=== PATIENT | male | born 1960 | race Caucasian/White ===

== ENCOUNTER 2018-12-06 15:13 | Emergency (ER) | payer OTHER ==
[2018-12-06 15:46] VITALS: BP 180/127; PULSE 80; O2SAT 99
[2018-12-06] MEDS ORDERED: VASOTEC I.V. 2.5 MG IV ONE (15:51)
--- NOTE | 2018-12-06 16:06 | ERPHSYRPT ---
- History of Present Illness Time Seen by Provider: 12/06/18 15:45 Source: patient Exam Limitations: no limitations Patient Subjective Stated Complaint: elevatged b/p today. had been trying to manage with Dr Montgomery Triage Nursing Assessment: alert and in no distress. states b/p elevated. spoke with Dr Lott yesterday and was told to increase his amolpidine. states no decrease. was instructed to increase to 10mg with no change. called office and since MD was not in office they told him to come to ER. denies CP,n/ v or headache. Physician History: 58 y/o white male with h/o high blood pressure presents with elevated bp. pt seen by pcp on tuesday [facility]. pt was taking lisinopril 20mg orally each am prior to his visit to the pcp. they added amlodipine 5mg orally each morning. yesterday pt call pcp office because bp still >180/100. told pt to take 10mg amlodipine each morning. this am bp continues to be >180/100. pts pcp not in office today. pt has no sx whatsoever but concerned bp elevated. Timing/Duration: day(s) (2) Severity: mild Associated Symptoms: denies symptoms Hx Influenza Vaccination/Date Given: No Immunizations Up to Date: Yes - Review of Systems Constitutional: No Symptoms Eyes: No Symptoms Ears, Nose, & Throat: No Symptoms Respiratory: No Symptoms Cardiac: No Symptoms Abdominal/Gastrointestinal: No Symptoms Genitourinary Symptoms: No Symptoms Musculoskeletal: No Symptoms Skin: No Symptoms Neurological: No Symptoms Psychological: No Symptoms Endocrine: No Symptoms Hematologic/Lymphatic: No Symptoms Immunological/Allergic: No Symptoms All Other Systems: Reviewed and Negative - Past Medical History Pertinent Past Medical History: Yes Neurological History: No Pertinent History ENT History: No Pertinent History Cardiac History: Hypertension Respiratory History: No Pertinent History Endocrine Medical History: No Pertinent History Musculoskeletal History: No Pertinent History GI Medical History: No Pertinent History History: No Pertinent History Psycho-Social History: No Pertinent History Male Reproductive Disorders: No Pertinent History - Past Surgical History Past Surgical History: No Neuro Surgical History: No Pertinent History Cardiac: No Pertinent History Respiratory: No Pertinent History Gastrointestinal: No Pertinent History Genitourinary: No Pertinent History Musculoskeletal: No Pertinent History Male Surgical History: No Pertinent History - Social History Smoking Status: Current every day smoker Exposure to second hand smoke: No Drug Use: none Patient Lives Alone: No - Nursing Vital Signs Nursing Vital Signs: Initial Vital Signs Temperature 97.8 F 12/06/18 15:39 Pulse Rate 80 12/06/18 15:39 Respiratory Rate 18 12/06/18 15:39 Blood Pressure 180/127 12/06/18 15:39 O2 Sat by Pulse Oximetry 99 12/06/18 15:39 Pain Scale Pain Intensity 0 - Physical Exam General Appearance: mild distress, alert, anxiety Eye Exam: PERRL/EOMI, eyes nml inspection Ears, Nose, Throat Exam: normal ENT inspection, moist mucous membranes Neck Exam: normal inspection, non-tender, supple, full range of motion Respiratory Exam: normal breath sounds, lungs clear, airway intact, No chest tenderness, No respiratory distress Cardiovascular Exam: regular rate/rhythm, normal heart sounds, normal peripheral pulses Gastrointestinal/Abdomen Exam: soft, normal bowel sounds, No tenderness, No guarding, No rebound Rectal Exam: not done Back Exam: normal inspection, normal range of motion, No CVA tenderness, No vertebral tenderness Extremity Exam: normal inspection, normal range of motion, pelvis stable Neurologic Exam: alert, oriented x 3, cooperative, cpa tax II-XII nml as tested Skin Exam: normal color, warm, dry Lymphatic Exam: No adenopathy SpO2 Interpretation: normal SpO2: 99 O2 Delivery: Room Air - Course Nursing assessment & vital signs reviewed: Yes EKG Interpreted by Me: RATE ([id number]), Sinus Tach, NORMAL AXIS, NORMAL QRS, NORMAL ST-T, Other (no comparison ekg) Ordered Tests: Active Orders 24 hr Category Date Time Status IV Insertion STAT Care 12/06/18 15:51 Active Medication Summary Discontinued Medications Generic Name Dose Route Start Last Admin Trade Name Reggieq PRN Reason Stop Dose Admin Enalaprilat 0.625 mg 12/06/18 15:51 Vasotec I.V. 2.5 Mg IV 12/06/18 15:52 STAT ONE - Progress Progress Note: 12/06/18 16:49 pt left after i evaluated him. there was a lot of pts being triaged at the same time. 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 12/06/18 16:51 - Departure Departure Disposition: AMA Clinical Impression: Hypertension Condition: Stable Critical Care Time: Yes Critical Care Time(excluding separately billable procedures): 30-74 minutes Referrals: AJ MONTGOMERY MD [Primary Care Provider] -
== END 2018-12-06 16:30 | disposition left against medical advice (07) ==
LOC: ED 15:13
DX: I10 Essential (primary) hypertension (principal)
CPT/HCPCS: 99283